=== PATIENT | female | born 1960 | race Caucasian/White ===

== ENCOUNTER 2016-06-18 12:50 | Day surgery (SDC) | payer MEDICARE, BC ==
[~2016-06-18 12:50] MED LIST: Lactated Ringers 1,000 ML IV SCH; Lidocaine 1% 4 ML ONE; Lidocaine 1%/Sod Bicarbonate in NS 8.4% 1 ML Syringe IV PRN; Propofol 200 MG/20 ML SDV ONE; Sodium Chloride 0.9% 10 ML Syringe FLUSH PRN
--- NOTE | 2016-06-18 13:27 | PCM.PREANE ---
Preanesthetic Assessment - Anesthesia/Transfusion/Family Hx Anesthesia History: Prior Anesthesia Reaction Type of Anesthesia Reaction: Excessive Somnolence, Excessive Nausea/Vomiting, Other (see below) (hallucinations from narcotics ) Family History of Anesthesia Reaction: No Transfusion History: No Prior Transfusion(s) Intubation History: History of Difficulty Intubation (neck fusion, was told she has a difficult airway due to this ) - Review of Systems General: No Symptoms Pulmonary: Shortness of Breath (r/t dystolic dysfunction ) Cardiovascular: Dyspnea on Exertion Gastrointestinal: Nausea (since november, occasional 4 days a week ) Neurological: No Symptoms Other: Reports: Liver Problems (diagnosised with a fatty liver ) - Physical Assessment NPO Status Date: 06/17/16 NPO Status Time: 05:15 Pulse: 79 O2 Sat by Pulse Oximetry: 79 Respiratory Rate: 16 Blood Pressure: 118/89 Temperature: 36.4 C Height: 0 cm Weight: 0 g ASA Class: 3 Mental Status: Alert & Oriented x3 Airway Class: Mallampati = 1 Dentition: Reports: Normal Dentition Thyro-Mental Finger Breadths: 2 Mouth Opening Finger Breadths: 5 ROM/Head Extension: Full Lungs: Clear to auscultation, Normal respiratory effort Cardiovascular: Regular Rate, Regular Rhythm - Allergies Allergies/Adverse Reactions: Allergies Allergy/AdvReac Type Severity Reaction Status Date / Time adhesive Allergy Rash Verified 06/17/16 15:31 Sulfa (Sulfonamide Allergy Other Verified 06/17/16 15:31 Antibiotics) vortioxetine Allergy Nausea and Verified 06/17/16 15:31 [From Trintellix] Vomiting doxycycline AdvReac Vomiting Verified 06/17/16 15:31 fentanyl AdvReac Confusion Verified 06/17/16 15:31 methadone AdvReac Blurred Verified 06/17/16 15:31 Vision sertraline AdvReac Vomiting Verified 06/17/16 15:31 Dust and mold Allergy Coughing, Uncoded 06/17/16 15:31 sneezing - Blood Blood Available: No - Anesthesia Plan Pre-Op Medication Ordered: None - Acknowledgements Anesthesia Type Planned: MAC Pt an Appropriate Candidate for the Planned Anesthesia: Yes Alternatives and Risks of Anesthesia Discussed w Pt/Guardian: Yes Pt/Guardian Understands and Agrees with Anesthesia Plan: Yes PreAnesthesia Questionnaire HEENT History: Reports: Impaired vision, Other (see below) Other HEENT History: septoplasty, glasses Cardiovascular History: Reports: Other (see below) Other Cardiovascular History: distolic dysfunction Respiratory History: Reports: Sleep apnea, SOB Gastrointestinal History: Reports: Chronic diarrhea, Diverticulosis, Gastritis, GERD Other Gastrointestinal History: post op nausea and vomiting, diarrhea, globus sensation, hiatal hernia 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 Other Musculoskeletal History: adhesive capsulitis of L shoulder, sympathetic reflex dystropy, chronic pain Neurological History: Reports: None Psychiatric History: Reports: Depression, Other (see below) Other Psychiatric History: insomnia Endocrine/Metabolic History: Reports: Other (see below) Other Endocrine/Metabolic History: thyroid nodule, adrenal insufficiency Hematologic History: Reports: None Immunologic History: Reports: None Oncologic (Cancer) History: Reports: None Other Dermatologic History: hyperhidrosis - Past Surgical History GI Surgical History: Reports: Cholecystectomy, Colonoscopy, EGD Female Surgical History: Reports: Hysterectomy Other Musculoskeletal Surgeries/Procedures:: ulnar nerve traspositon, carpal tunnel release, r ankle surgery in 1985, Cspine fusion - SUBSTANCE USE Smoking Status *Q: Never Smoker Recreational Drug Use History: No - HOME MEDS Home Medications: Home Meds Azelastine HCl [Astepro] 1 dose MALCOLM ASDIRECTED 06/17/16 [History] Cetirizine [ZyrTEC] 10 mg PO DAILY 06/17/16 [History] Cholecalciferol (Vitamin D3) [Vitamin D3] 5,000 unit PO DAILY 06/17/16 [History] Citalopram [Celexa] 20 mg PO DAILY 06/17/16 [History] Cyclobenzaprine [Flexeril] 10 mg PO TID PRN 06/17/16 [History] Dextroamphetamine/Amphetamine [Adderall Xr 30 mg Capsule] 30 mg PO ASDIRECTED [History] Diazepam [Valium] 10 mg PO ASDIRECTED 06/17/16 [History] Dicyclomine HCl [Dicyclomine HCl] 20 mg PO ASDIRECTED 06/17/16 [History] Fluticasone Propionate [Flonase] 1 spray NASBOTH DAILY 06/17/16 [History] Hydrocortisone [Cortef] 5 mg PO BID 06/17/16 [History] Hydrocortisone [Cortef] 10 mg PO QAM 06/17/16 [History] Ibuprofen 1 - 3 tab PO Q6H PRN 06/17/16 [History] Ipratropium [Atrovent HFA] 1 dose INH ASDIRECTED 06/17/16 [History] Magnesium Citrate 100 mg PO DAILY 06/17/16 [History] Multivitamin [Multivitamins] 1 tab PO DAILY 06/17/16 [History] Omeprazole Magnesium [Prilosec Otc] 20 mg PO DAILY 06/17/16 [History] Ranitidine HCl [Zantac] 150 mg PO ASDIRECTED 06/17/16 [History] Salicylic Acid/Ceramide Cmb #1 [Salicylic Acid 6% Lotion] 1 applic TOP ASDIRECTED 06/17/16 [History] Simethicone [Gas Relief] 125 mg PO ASDIRECTED PRN 06/17/16 [History] Sucralfate [Carafate] 1 gm PO QID 06/17/16 [History] lamoTRIgine [Lamictal] 25 mg PO ASDIRECTED 06/17/16 [History] - CURRENT (IN HOUSE) MEDS Current Meds: Current Medications Lactated Ringer's (Ringers, Lactated) 1,000 mls @ 125 mls/hr IV ASDIRECTED KENTRELL Lidocaine/Sodium Bicarbonate (Buffered Lidocaine 1% In Ns 8.4%) 0.25 ml IV ONETIME PRN PRN Reason: Prior to IV Start Sodium Chloride (Saline Flush) 10 ml FLUSH ASDIRECTED PRN PRN Reason: Keep Vein Open Discontinued Medications Lidocaine HCl (Xylocaine-Mpf 1%) Confirm Administered Dose 4 mls @ as directed .ROUTE .STK-MED ONE Stop: 06/18/16 12:05 Propofol (Diprivan 20 Ml) Confirm Administered Dose 200 mg .ROUTE .STK-MED ONE Stop: 06/18/16 12:05
[2016-06-18] MEDS ORDERED: Propofol 200 MG/20 ML SDV ONE (14:53)
--- NOTE | 2016-06-18 15:15 | PCM.OPNOTE ---
- General Post-Op/Procedure Note Date of Surgery/Procedure: 06/18/16 Operative Procedure(s): 1. Diagnostic EGD with cold forceps polypectomy. 2. Diagnostic colonoscopy with cold forceps biopsy Pre Op Diagnosis: Dysphagia, abdominal pain Post-Op Diagnosis: Gastritis, a few diminutive gastric polyps, hiatal hernia, diverticulosis, proctitis Anesthesia Technique: MAC Primary Surgeon: Lucero Sierra Anesthesia Provider: Patricia Yadav Pathology: 1. Small bowel biopsy 2. Antral biopsy 3. Distal esophageal biopsy 4. Rectal biopsies Fluid Replacement, Intraop: 500 (mL crystalloid ) EBL in mLs: 1 Complications: None Condition: Good Free Text/Narrative:: INDICATION FOR PROCEDURE: The patient is a 55-year-old woman who was referred to me by RON Pond for evaluation for chronic abdominal pain, nausea , vomiting, dysphagia. Performing a colonoscopy and EGD an the associated risks of the procedures had been discussed with the patient. The patient found these risks acceptable and agreed to proceed. DESCRIPTION OF PROCEDURE: The patient was taken to the operating room and placed in the left lateral decubitus position. After induction of adequate sedation, a bite block was placed. A standard Olympus gastroscope was inserted into the oropharynx and guided down the esophagus without difficulty. The gastroesophageal junction was appreciated at 39 cm from the teeth. There was no evidence of stricture or esophageal ulcerations. The scope was advanced into the stomach, and there was diffuse moderate gastritis with areas of punctate hemorrhage. The scope was passed into the proximal jejunum and the duodenum which was unremarkable. There were no petechiae or ulcerations. The proximal jejunum was grossly normal in appearance. Multiple cold forceps biopsies were obtained of the proximal jejunum and duodenum. The scope was withdrawn into the antrum, and additional cold forceps biopsies were obtained. The remainder of the gastric body was examined, and there were a few diminutive gastric polyps in the cardia. The scope was retroflexed, and there was a small hiatal hernia. The scope was straightened and withdrawn to the GE junction. Additional cold forceps biopsies were obtained of the distal esophagus. The scope was withdrawn through the remainder of the esophagus and no further abnormalities were noted. The posterior oropharynx was grossly normal in appearance. The scope was fully withdrawn and attention was then turned to the colonoscopy. A digital rectal exam was performed which was unremarkable. A standard adult Olympus colonoscope was inserted into the rectum and guided under direct visualization to the appendiceal orifice and ileocecal valve. The scope was then slowly withdrawn through the colon. The quality of the prep was good. There was no evidence of angiodysplasias. There were a few scattered diverticulum throughout the colon. The scope was withdrawn into the rectum and retroflexed. There was proctitis, cold forceps biopsies were obtained. There was no significant prominence of the patient's internal hemorrhoids. The scope was straightened, the colon was desufflated, and the scope was withdrawn. The patient was awakened from sedation and transferred to the recovery room in stable condition having tolerated the procedure well. POSTOPERATIVE PLAN: I discussed with the patient my intraoperative findings and recommendations. The patient will follow up in approximately 7-10 days to discuss pathology and how their symptoms are progressing. The patient is to continue Prilosec and Zantac. She cannot tolerate Carafate. I have asked the patient to follow a GERD\gastritis diet. The patient is to call with any worsening of symptoms or questions prior to the appointment.
--- NOTE | 2016-06-18 15:15 | PCM48HPAN ---
Post Anesthesia Note - EVALUATION WITHIN 48HRS OF ANESTHETIC Vital Signs in Normal Range: Yes Patient Participated in Evaluation: Yes Respiratory Function Stable: Yes Airway Patent: Yes Cardiovascular Function Stable: Yes Hydration Status Stable: Yes Pain Control Satisfactory: Yes Nausea and Vomiting Control Satisfactory: Yes Mental Status Recovered: Yes
[2016-06-18 15:19] VITALS: BP 125/77
== END 2016-06-18 15:50 | disposition home or self-care (01) ==
LOC: JD.SDS 12:50
PROVIDERS: ATTEND Surgery
PROC: 0DB98ZX Excision of Duodenum, Via Natural or Artificial Opening Endoscopic, Diagnostic (ICD-10-PCS; principal; 2016-06-18)
PROC: 0DB48ZX Excision of Esophagogastric Junction, Via Natural or Artificial Opening Endoscopic, Diagnostic (ICD-10-PCS; 2016-06-18)
PROC: 0DB68ZX Excision of Stomach, Via Natural or Artificial Opening Endoscopic, Diagnostic (ICD-10-PCS; 2016-06-18)
PROC: 0DBA8ZX Excision of Jejunum, Via Natural or Artificial Opening Endoscopic, Diagnostic (ICD-10-PCS; 2016-06-18)
PROC: 0DBE8ZX Excision of Large Intestine, Via Natural or Artificial Opening Endoscopic, Diagnostic (ICD-10-PCS; 2016-06-18)
DX: K29.50 Unspecified chronic gastritis without bleeding (principal); K31.7 Polyp of stomach and duodenum; K44.9 Diaphragmatic hernia without obstruction or gangrene; K57.30 Diverticulosis of large intestine without perforation or abscess without bleeding; K62.89 Other specified diseases of anus and rectum; K64.8 Other hemorrhoids; F32.9 Major depressive disorder, single episode, unspecified; G47.30 Sleep apnea, unspecified; E04.2 Nontoxic multinodular goiter; Z90.49 Acquired absence of other specified parts of digestive tract; Z90.710 Acquired absence of both cervix and uterus; Z98.890 Other specified postprocedural states; Z79.899 Other long term (current) drug therapy; Z88.1 Allergy status to other antibiotic agents; Z88.2 Allergy status to sulfonamides; Z88.5 Allergy status to narcotic agent; Z88.8 Allergy status to other drugs, medicaments and biological substances; Z91.048 Other nonmedicinal substance allergy status
CPT/HCPCS: 43239; 45380; 88305; J7120; 00740; J2704

== ENCOUNTER 2016-11-17 07:46 | Observation (INO) | payer MEDICARE, BC ==
[~2016-11-17 07:46] MED LIST changes: +Dexamethasone 4 MG/ML 5 ML MDV ONE; -Lactated Ringers 1,000 ML IV SCH; +Lactated Ringers 1,000 ML ONE; +Midazolam 1 MG/ML 2 ML SDV ONE; +Ondansetron 4 MG/2 ML SDV ONE; +Rocuronium 50 MG/5 ML Vial ONE; +ceFAZolin 1 GM Vial ONE; +fentaNYL 250 MCG/5 ML SDV ONE
[2016-11-17] MEDS ORDERED: Hydrocortisone Sodium Succinate 100 MG/2 ML SDV ONE (07:49)
--- NOTE | 2016-11-17 07:58 | PCM.PREANE ---
Preanesthetic Assessment - Procedure Proposed Procedure: Left thyroid lobectomy. - Anesthesia/Transfusion/Family Hx Anesthesia History: Prior Anesthesia Reaction Type of Anesthesia Reaction: Excessive Nausea/Vomiting Family History of Anesthesia Reaction: No Transfusion History: No Prior Transfusion(s) Intubation History: History of Difficulty Intubation (neck fusion, was told she has a difficult airway due to this ) - Review of Systems General: No Symptoms Pulmonary: No Symptoms (sleep apnea (pt uses CPAP)), Shortness of Breath, Cough Cardiovascular: No Symptoms (Diastolic heart failure), Lightheadedness Gastrointestinal: No Symptoms (GERD) Neurological: No Symptoms (Numbness/tingling in hands/fingers), Headache, Numbness, Tingling Other: Reports: None (Adrenal insufficiency; chronic pain), Easy Bruising, Liver Problems (Nonalcoholic fatty liver disease), Throat Pain, Neck Pain, Depression - Physical Assessment NPO Status Date: 11/17/16 NPO Status Time: 23:15 Pulse: 74 O2 Sat by Pulse Oximetry: 97 Blood Pressure: 133/56 Height: 0 cm Weight: 0 g ASA Class: 3 Mental Status: Alert & Oriented x3 Airway Class: Mallampati = 1 Dentition: Reports: Normal Dentition, [place](s) Thyro-Mental Finger Breadths: 3 Mouth Opening Finger Breadths: 3 ROM/Head Extension: Full (Patient states that it is painful to extend neck.) Lungs: Clear to Auscultation, Normal Respiratory Effort Cardiovascular: Regular Rate, Regular Rhythm - Allergies Allergies/Adverse Reactions: Allergies Allergy/AdvReac Type Severity Reaction Status Date / Time adhesive Allergy Rash Verified 11/14/16 12:21 Sulfa (Sulfonamide Allergy Other Verified 11/14/16 12:21 Antibiotics) vortioxetine Allergy Nausea and Verified 11/14/16 12:21 [From Trintellix] Vomiting doxycycline AdvReac Vomiting Verified 11/14/16 12:21 fentanyl AdvReac Confusion Verified 11/14/16 12:21 methadone AdvReac Blurred Verified 11/14/16 12:21 Vision sertraline AdvReac Vomiting Verified 11/14/16 12:21 Dust and mold Allergy Coughing, Uncoded 11/14/16 12:21 sneezing - Anesthesia Plan Pre-Op Medication Ordered: None - Acknowledgements Anesthesia Type Planned: General Anesthesia Pt an Appropriate Candidate for the Planned Anesthesia: Yes Alternatives and Risks of Anesthesia Discussed w Pt/Guardian: Yes Pt/Guardian Understands and Agrees with Anesthesia Plan: Yes PreAnesthesia Questionnaire HEENT History: Reports: Impaired Vision, Other (See Below) Other HEENT History: septoplasty, glasses Cardiovascular History: Reports: Other (See Below) Other Cardiovascular History: distolic dysfunction Respiratory History: Reports: Sleep Apnea, SOB Gastrointestinal History: Reports: Chronic Diarrhea, Colon Polyp, Diverticulosis , Gastritis, GERD, Hiatal Hernia Other Gastrointestinal History: post op nausea and vomiting, diarrhea, globus sensation, hiatal hernia Genitourinary History: Reports: None 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, 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, Other (See Below) Other OB/BYN History: left adnexal mass Other Musculoskeletal History: adhesive capsulitis of L shoulder, sympathetic reflex dystropy, chronic pain, bilateral achilles tendonitis Neurological History: Reports: None Psychiatric History: Reports: Depression, Other (See Below) Other Psychiatric History: insomnia Endocrine/Metabolic History: Reports: Other (See Below) Other Endocrine/Metabolic History: thyroid nodule, adrenal insufficiency Hematologic History: Reports: None Immunologic History: Reports: None Oncologic (Cancer) History: Reports: None, Basal Cell Carcinoma Other Dermatologic History: hyperhidrosis - Past Surgical History GI Surgical History: Reports: Cholecystectomy, Colonoscopy, EGD Female Surgical History: Reports: Hysterectomy Neurological Surgical History: Reports: None Other Musculoskeletal Surgeries/Procedures:: ulnar nerve traspositon, carpal tunnel release, r ankle surgery in 1985, Cspine fusion Oncologic Surgical History: Reports: None - SUBSTANCE USE Smoking Status *Q: Never Smoker Recreational Drug Use History: No - HOME MEDS Home Medications: Home Meds Citalopram [Celexa] 20 mg PO DAILY 06/17/16 [History] Cyclobenzaprine [Flexeril] 10 mg PO TID PRN 06/17/16 [History] Dextroamphetamine/Amphetamine [Adderall Xr 30 mg Capsule] 30 mg PO DAILY [History] Diazepam [Valium] 10 mg PO DAILY PRN 06/17/16 [History] Fluticasone Propionate [Flonase] 1 spray NASBOTH DAILY 06/17/16 [History] Hydrocortisone [Cortef] 5 mg PO BID 06/17/16 [History] Hydrocortisone [Cortef] 10 mg PO QAM 06/17/16 [History] Ranitidine HCl [Zantac] 150 mg PO DAILY PRN 06/17/16 [History] Salicylic Acid/Ceramide Cmb #1 [Salicylic Acid 6% Lotion] 1 applic TOP ASDIRECTED 06/17/16 [History] Simethicone [Gas Relief] 125 mg PO DAILY PRN 06/17/16 [History] lamoTRIgine [Lamictal] 100 mg PO DAILY 06/17/16 [History] buPROPion [Wellbutrin XL] 300 mg PO DAILY 06/18/16 [History] - CURRENT (IN HOUSE) MEDS Current Meds: Current Medications Lactated Ringer's (Ringers, Lactated) 1,000 mls @ 125 mls/hr IV ASDIRECTED KENTRELL Stop: 11/17/16 23:00 Lidocaine/Sodium Bicarbonate (Buffered Lidocaine 1% In Ns 8.4%) 0.25 ml IV ONETIME PRN PRN Reason: Prior to IV Start Stop: 11/17/16 18:00 Sodium Chloride (Saline Flush) 10 ml FLUSH ASDIRECTED PRN PRN Reason: Keep Vein Open Stop: 11/17/16 18:00 Discontinued Medications Cefazolin Sodium (Ancef) Confirm Administered Dose 2 gm .ROUTE .STK-MED ONE Stop: 11/17/16 07:11 Dexamethasone (Dexamethasone) Confirm Administered Dose 20 mg .ROUTE .STK-MED ONE Stop: 11/17/16 07:11 Fentanyl (Sublimaze) Confirm Administered Dose 250 mcg .ROUTE .STK-MED ONE Stop: 11/17/16 07:11 Hydrocortisone Sodium Succinate (Solu-Cortef) Confirm Administered Dose 100 mg .ROUTE .STK-MED ONE Stop: 11/17/16 07:50 Lidocaine HCl (Xylocaine-Mpf 1%) Confirm Administered Dose 4 mls @ as directed .ROUTE .STK-MED ONE Stop: 11/17/16 07:11 Lactated Ringer's (Ringers, Lactated) Confirm Administered Dose 1,000 mls @ as directed .ROUTE .STK-MED ONE Stop: 11/17/16 07:29 Midazolam HCl (Versed 1 Mg/Ml) Confirm Administered Dose 2 mg .ROUTE .STK-MED ONE Stop: 11/17/16 07:11 Ondansetron HCl (Zofran) Confirm Administered Dose 4 mg .ROUTE .STK-MED ONE Stop: 11/17/16 07:11 Propofol (Diprivan 20 Ml) Confirm Administered Dose 200 mg .ROUTE .STK-MED ONE Stop: 11/17/16 07:11 Rocuronium [place] (Zemuron) Confirm Administered Dose 50 mg .ROUTE .STK-MED ONE Stop: 11/17/16 07:11
[2016-11-17] MEDS: Lactated Ringers 1,000 ML IV SCH ×3 (08:05→16:49)
[2016-11-17] MEDS ORDERED: Scopolamine 1.5 MG Transdermal Patch TRDERM ONE (08:24)
[2016-11-17] MEDS ORDERED: Succinylcholine 200 MG/10 ML MDV ONE (08:52)
[2016-11-17] MEDS ORDERED: Phenylephrine 1% 10 MG/ML SDV ONE (09:38)
--- NOTE | 2016-11-17 10:44 | PCM.OPNOTE ---
- General Post-Op/Procedure Note Date of Surgery/Procedure: 11/17/16 Operative Procedure(s): left thyroid left lobectomy Pre Op Diagnosis: symptomatic substernal thyroid left Post-Op Diagnosis: Same Anesthesia Technique: General ET Tube Primary Surgeon: Conrad Billingsley EBL in mLs: 30 Complications: None Condition: Good
[2016-11-17] MEDS ORDERED: Cyclobenzaprine 10 MG Tab PO PRN (10:46)
[2016-11-17] MEDS ORDERED: Simethicone 80 MG Tab.Chew PO PRN (10:46)
[2016-11-17] MEDS ORDERED: Famotidine 20 MG Tab PO PRN (10:46)
[2016-11-17] MEDS ORDERED: Diazepam 5 MG Tab PO PRN (10:46)
--- NOTE | 2016-11-17 10:56 | PCM.POSTAN ---
POST ANESTHESIA ASSESSMENT - MENTAL STATUS Mental Status: Alert, Oriented - VITAL SIGNS Pulse Rate: 73 SaO2: 100 Resp Rate: 15 Blood Pressure: 122/59 Temperature: 36.8 C - RESPIRATORY Respiratory Status: Respiratory Rate WNL, Airway Patent, O2 Saturation Stable - CARDIOVASCULAR CV Status: Pulse Rate WNL, Blood Pressure Stable - GASTROINTESTINAL GI Status: No Symptoms - PAIN Pain Score: 0 - POST OP HYDRATION Hydration Status: Adequate & Stable
[2016-11-17] MEDS ORDERED: Ondansetron 4 MG/2 ML SDV IVPUSH PRN (10:57)
[2016-11-17] MEDS ORDERED: SALICYLIC ACID TOP SCH (11:00)
[2016-11-17] MEDS ORDERED: [UNRECOGNIZED DRUG - OTHER] TOP SCH (11:00)
[2016-11-17] MEDS: fentaNYL 100 MCG/2 ML SDV IVPUSH PRN ×3 (11:13→11:44)
[2016-11-17] MEDS ORDERED: HYDROmorphone 0.5 MG/0.5 ML Syringe IVPUSH PRN ×2 (11:14→15:24)
[2016-11-17] MEDS: HYDROmorphone 0.5 MG/0.5 ML Syringe IVPUSH PRN ×2 (11:30→11:49)
[2016-11-17] MEDS ORDERED: Ondansetron 4 MG Tab.DIS PO PRN ×2 (13:28→15:24)
[2016-11-17] MEDS ORDERED: Acetaminophen/HYDROcodone 325-5 MG Tab PO PRN ×2 (14:35→15:24)
[2016-11-17] MEDS ORDERED: Hydrocortisone Sodium Succinate 100 MG/2 ML SDV IVPUSH SCH (15:24)
[2016-11-17] MEDS: Hydrocortisone Sodium Succinate 100 MG/2 ML SDV IVPUSH SCH ×2 (16:48→21:37)
[2016-11-17] MEDS: Benzocaine/Cetylpyridinium/Menthol Lozenge MUCMEM PRN (21:38)
[2016-11-18] MEDS: Hydrocortisone Sodium Succinate 100 MG/2 ML SDV IVPUSH SCH ×3 (03:59→16:05)
[2016-11-18] MEDS: Benzocaine/Cetylpyridinium/Menthol Lozenge MUCMEM PRN (04:06)
--- NOTE | 2016-11-18 07:38 | OR ---
DATE OF OPERATION: 11/17/2016 SURGEON: Conrad Billingsley MD PREOPERATIVE DIAGNOSIS: Symptomatic left thyroid goiter. POSTOPERATIVE DIAGNOSIS: Symptomatic left thyroid goiter. OPERATION PERFORMED: Left thyroid lobectomy done under general anesthetic. ESTIMATED BLOOD LOSS: About 30 mL. FINDINGS: Large goiter that was extending into the chest. DESCRIPTION OF PROCEDURE: The patient was taken to the operating room, placed in a supine position, given a general anesthetic and intubated. A steroid boost was given because of adrenal insufficiency. She is positioned on the table with the arms tucked and a roll under her shoulder and the neck extended. The anterior chest, neck, and chin was then prepped with Betadine scrubbing solution, draped off in a sterile fashion. A collar incision was made and carried down by sharp dissection through the platysmas, and superior and inferior flaps were developed. Efren Adson self-retaining retractor was placed. The strap muscles were incised in the midline and dissected off the thyroid and the thyroid was then on the left side, and the thyroid lobe was then delivered into the wound by blunt dissection. The inferior thyroid vein was taken down between curved hemostats and the thyroid lobe was then tipped up and the superior thyroid artery were taken down and clamping its branches as ramified onto the thyroid. Gland, these were cut and tied with 3-0 Vicryl suture. The branches of the inferior thyroid artery were taken down, clamped and tied with 3-0 Vicryl suture and the recurrent nerve was kept from harm's way. Bleeding thyroid was then delivered for analysis. Inspection of the wound showed bleeders and these were taken care with small clips. Excellent hemostasis sustained. The thyroid midline, strap muscle was then closed with interrupted 3-0 Vicryl suture. Platysmas were then approximated with interrupted 3-0 Vicryl suture and the skin closed with a running subdermal 4 Dexon suture. Steri-Strips, sterile dressing placed. The patient tolerated the procedure and sent to recovery room in a stable condition. ANESTHESIA: General. MMODAL /[id number]
[2016-11-18] MEDS ORDERED: HYDROCORTISONE 10 MG PO SCH (08:00)
[2016-11-18] MEDS ORDERED: Dextroamphetamine/Amphetamine [Adderall Xr 30 Mg Capsule] PO SCH (09:00)
[2016-11-18] MEDS ORDERED: HYDROCORTISONE 5 MG PO SCH (09:00)
[2016-11-18] MEDS ORDERED: Citalopram 20 MG Tab PO SCH (09:00)
[2016-11-18] MEDS ORDERED: lamoTRIgine 100 MG Tab PO SCH (09:00)
[2016-11-18] MEDS ORDERED: buPROPion 150 MG Tab.ER PO SCH (09:00)
--- NOTE | 2016-11-18 09:13 | PCM48HPAN ---
Post Anesthesia Note - EVALUATION WITHIN 48HRS OF ANESTHETIC Vital Signs in Normal Range: Yes Patient Participated in Evaluation: Yes Respiratory Function Stable: Yes Airway Patent: Yes Cardiovascular Function Stable: Yes Hydration Status Stable: Yes Pain Control Satisfactory: Yes Nausea and Vomiting Control Satisfactory: Yes Mental Status Recovered: Yes - COMMENTS/OBSERVATIONS Free Text/Narrative:: Patient reports pain at incision site. Pain medications prescribed do help with management. States "it is easier to swallow and no longer feels like she has something stuck in her throat." On humidified O2 at 6L. SpO2 is 97%. Encouraged to use IS frequently. No further questions at this time.
[2016-11-18] MEDS: Lactated Ringers 1,000 ML IV SCH (13:02)
[2016-11-18 13:22] VITALS: BP 108/75
--- NOTE | 2016-11-18 16:16 | PCM.SURGPN ---
- General Info Date of Service: 11/18/16 - Patient Data Vitals - Most Recent: Last Vital Signs Temp 98.6 F 11/18/16 12:00 Pulse 70 11/18/16 12:00 Resp 18 11/18/16 12:00 BP 108/75 11/18/16 12:00 Pulse Ox 94 L 11/18/16 12:00 Weight - Most Recent: 87.317 kg I&O - Last 24 Hours: Intake & Output 11/18/16 11/18/16 11/18/16 07:59 15:59 23:59 Intake Total 808 480 600 Output Total 1100 Balance -292 480 600 Lab Results Last 24 Hrs: Laboratory Results - last 24 hr 11/17/16 11/18/16 Range/Units 16:00 06:30 Calcium 8.2 L 8.2 L (8.5-10.1) mg/dL Med Orders - Current: Current Medications Hydrocodone Bitart/Acetaminophen ([place] 325-5 Mg) 1 tab PO Q4H PRN PRN Reason: Pain Last Admin: 11/18/16 13:03 Dose: 1 tab Benzocaine/Menthol (Cepacol Sore Throat) 1 lozenge MUCMEM Q4HR PRN PRN Reason: Sore Throat Last Admin: 11/18/16 04:06 Dose: 1 lozenge Bupropion HCl (Wellbutrin Xl) 300 mg PO DAILY [facility] Last Admin: 11/18/16 09:03 Dose: 300 mg Citalopram Hydrobromide (Celexa) 20 mg PO DAILY [facility] Last Admin: 11/18/16 09:03 Dose: 20 mg Cyclobenzaprine HCl (Flexeril) 10 mg PO TID PRN PRN Reason: muscle spasms Diazepam (Valium.) 10 mg PO DAILY PRN PRN Reason: Anxiety Famotidine (Pepcid) 20 mg PO DAILY PRN PRN Reason: acid reflux Flunisolide (Nasalide Nasal [place]) 0 ml NASBOTH BID [facility] Last Admin: 11/18/16 10:07 Dose: Not Given Hydrocortisone Sodium Succinate (Solu-Cortef) 50 mg IVPUSH Q6H [facility] Last Admin: 11/18/16 16:05 Dose: 50 mg Hydromorphone HCl (Dilaudid) 0.5 mg IVPUSH Q2H PRN PRN Reason: Pain Last Admin: 11/17/16 20:06 Dose: 0.5 mg Lactated Ringer's (Ringers, Lactated) 1,000 mls @ 50 mls/hr IV ASDIRECTED [facility] Last Admin: 11/18/16 13:02 Dose: 50 mls/hr Lamotrigine (Lamotrigine) 100 mg PO DAILY [facility] Last Admin: 11/18/16 10:07 Dose: 100 mg Non-Formulary Medication (Hydrocortisone) 5 mg PO BID [facility] Non-Formulary Medication (Hydrocortisone) 10 mg PO QAM [facility] Ondansetron HCl (Zofran Odt) 4 mg PO Q8H PRN PRN Reason: Nausea/Vomiting Dextroamphetamine/Amphetamine [ Adderall Xr 30 Mg Capsule] 0 each PO DAILY [facility] Last Admin: 11/18/16 09:44 Dose: Not Given Salicylic Acid/Ceramide Cmb #1 [ Salicylic Acid 6% Lotion] 0 each TOP ASDIRECTED [facility] Simethicone (Simethicone) 80 mg PO DAILY PRN PRN Reason: Gas Discontinued Medications Hydrocodone Bitart/Acetaminophen ([place] 325-5 Mg) 1 tab PO Q4H PRN PRN Reason: Pain Cefazolin Sodium (Ancef) Confirm Administered Dose 2 gm .ROUTE .STK-MED ONE Stop: 11/17/16 07:11 Dexamethasone (Dexamethasone) Confirm Administered Dose 20 mg .ROUTE .STK-MED ONE Stop: 11/17/16 07:11 Fentanyl (Sublimaze) Confirm Administered Dose 250 mcg .ROUTE .STK-MED ONE Stop: 11/17/16 07:11 Fentanyl (Sublimaze) 50 mcg IVPUSH Q5M PRN PRN Reason: Pain Stop: 11/17/16 14:00 Last Admin: 11/17/16 11:44 Dose: 50 mcg Hydrocortisone Sodium Succinate (Solu-Cortef) Confirm Administered Dose 100 mg .ROUTE .STK-MED ONE Stop: 11/17/16 07:50 Hydrocortisone Sodium Succinate (Solu-Cortef) 50 mg IVPUSH Q6H [facility] Last Admin: 11/17/16 17:51 Dose: Not Given Hydromorphone HCl (Dilaudid) 0.5 mg IVPUSH Q15M PRN PRN Reason: severe pain Stop: 11/17/16 14:00 Last Admin: 11/17/16 11:49 Dose: 0.5 mg Hydromorphone HCl (Dilaudid) 0.5 mg IVPUSH Q2H PRN PRN Reason: Pain Lactated Ringer's (Ringers, Lactated) 1,000 mls @ 50 mls/hr IV ASDIRECTED [facility] Stop: 11/17/16 23:00 Last Admin: 11/17/16 12:35 Dose: 125 mls/hr Lidocaine HCl (Xylocaine-Mpf 1%) Confirm Administered Dose 4 mls @ as directed .ROUTE .STK-MED ONE Stop: 11/17/16 07:11 Lactated Ringer's (Ringers, Lactated) Confirm Administered Dose 1,000 mls @ as directed .ROUTE .STK-MED ONE Stop: 11/17/16 07:29 Lidocaine/Sodium Bicarbonate (Buffered Lidocaine 1% In Ns 8.4%) 0.25 ml IV ONETIME PRN PRN Reason: Prior to IV Start Stop: 11/17/16 18:00 Midazolam HCl (Versed 1 Mg/Ml) Confirm Administered Dose 2 mg .ROUTE .STK-MED ONE Stop: 11/17/16 07:11 Ondansetron HCl (Zofran) Confirm Administered Dose 4 mg .ROUTE .STK-MED ONE Stop: 11/17/16 07:11 Ondansetron HCl (Zofran) 4 mg IVPUSH ONETIME PRN PRN Reason: Nausea/Vomiting Stop: 11/17/16 14:00 Ondansetron HCl (Zofran Odt) 4 mg PO Q8H PRN PRN Reason: Nausea/Vomiting Phenylephrine HCl (Ari-Synephrine) Confirm Administered Dose 10 mg .ROUTE .STK- MED ONE Stop: 11/17/16 09:39 Propofol (Diprivan 20 Ml) Confirm Administered Dose 200 mg .ROUTE .STK-MED ONE Stop: 11/17/16 07:11 Rocuronium Index (Zemuron) Confirm Administered Dose 50 mg .ROUTE .STK-MED ONE Stop: 11/17/16 07:11 Scopolamine (Transderm-Scop) 1.5 mg TRDERM ONETIME ONE Stop: 11/17/16 08:25 Last Admin: 11/17/16 08:33 Dose: 1.5 mg Sodium Chloride (Saline Flush) 10 ml FLUSH ASDIRECTED PRN PRN Reason: Keep Vein Open Stop: 11/17/16 18:00 Succinylcholine Chloride (Quelicin) Confirm Administered Dose 200 mg .ROUTE .STK -MED ONE Stop: 11/17/16 08:53 - Problem List Review Problem List Initiated/Reviewed/Updated: Yes - My Orders Last 24 Hours: Active Orders 24 hr Category Date Time Status Ambulate [] QID Care 11/17/16 19:21 Active Communication Order [] ASDIRECTED Care 11/17/16 19:32 Active Ready for Discharge [] PER UNIT ROUTINE Care 11/18/16 16:15 Ordered Up to Chair [] TIDAC Care 11/17/16 19:22 Active Benzocaine/Cetylpyrd/Menthol [Cepacol Sore Throat] Med 11/17/16 19:20 Active 1 lozenge MUCMEM Q4HR PRN Citalopram [Celexa] Med 11/18/16 09:00 Active 20 mg PO DAILY Flunisolide [Nasalide Nasal [place]] Med 11/18/16 09:00 Active 0 ml NASBOTH BID Hydrocortisone Med 11/18/16 08:00 Pending 10 mg PO QAM Hydrocortisone Med 11/18/16 09:00 Pending 5 mg PO BID Patient's Own Medication [Ptom] Med 11/18/16 09:00 Active 0 each PO DAILY buPROPion [Wellbutrin XL] Med 11/18/16 09:00 Active 300 mg PO DAILY lamoTRIgine Med 11/18/16 09:00 Active 100 mg PO DAILY Medication Orders Hydrocodone Bitart/Acetaminophen ([place] 325-5 Mg) 1 tab PO Q4H PRN PRN Reason: Pain Last Admin: 11/18/16 13:03 Dose: 1 tab Benzocaine/Menthol (Cepacol Sore Throat) 1 lozenge MUCMEM Q4HR PRN PRN Reason: Sore Throat Last Admin: 11/18/16 04:06 Dose: 1 lozenge Admin: 11/17/16 21:38 Dose: 1 lozenge Bupropion HCl (Wellbutrin Xl) 300 mg PO DAILY [facility] Last Admin: 11/18/16 09:03 Dose: 300 mg Citalopram Hydrobromide (Celexa) 20 mg PO DAILY [facility] Last Admin: 11/18/16 09:03 Dose: 20 mg Cyclobenzaprine HCl (Flexeril) 10 mg PO TID PRN PRN Reason: muscle spasms Diazepam (Valium.) 10 mg PO DAILY PRN PRN Reason: Anxiety Famotidine (Pepcid) 20 mg PO DAILY PRN PRN Reason: acid reflux Flunisolide (Nasalide Nasal [place]) 0 ml NASBOTH BID [facility] Last Admin: 11/18/16 10:07 Dose: Not Given Hydrocortisone Sodium Succinate (Solu-Cortef) 50 mg IVPUSH Q6H [facility] Last Admin: 11/18/16 16:05 Dose: 50 mg Admin: 11/18/16 09:03 Dose: 50 mg Admin: 11/18/16 03:59 Dose: 50 mg Admin: 11/17/16 21:37 Dose: 50 mg Admin: 11/17/16 16:48 Dose: 50 mg Hydromorphone HCl (Dilaudid) 0.5 mg IVPUSH Q2H PRN PRN Reason: Pain Last Admin: 11/17/16 20:06 Dose: 0.5 mg Lactated Ringer's (Ringers, Lactated) 1,000 mls @ 50 mls/hr IV ASDIRECTED [facility] Last Admin: 11/18/16 13:02 Dose: 50 mls/hr Infusion: 11/18/16 12:49 Dose: 50 mls/hr Admin: 11/17/16 16:49 Dose: 50 mls/hr Lamotrigine (Lamotrigine) 100 mg PO DAILY [facility] Last Admin: 11/18/16 10:07 Dose: 100 mg Non-Formulary Medication (Hydrocortisone) 5 mg PO BID [facility] Non-Formulary Medication (Hydrocortisone) 10 mg PO QAM [facility] Ondansetron HCl (Zofran Odt) 4 mg PO Q8H PRN PRN Reason: Nausea/Vomiting Dextroamphetamine/Amphetamine [ Adderall Xr 30 Mg Capsule] 0 each PO DAILY [facility] Last Admin: 11/18/16 09:44 Dose: Salicylic Acid/Ceramide Cmb #1 [ Salicylic Acid 6% Lotion] 0 each TOP ASDIRECTED [facility] Simethicone (Simethicone) 80 mg PO DAILY PRN PRN Reason: Gas - Plan Plan (Free Text/Narrative):: dischaarge summary dictated JMB
--- NOTE | 2016-11-18 23:13 | DISCH ---
ADMISSION DATE: 11/17/2016 DISCHARGE DATE: 11/18/2016 HISTORY OF PRESENT ILLNESS: This is a 56-year-old, who presented with symptomatic thyroid extending into the chest. Her symptoms were that of dysphagia. She was brought in for elective right thyroid lobectomy. She did have comorbidities as stated in her H and P of which her adrenal insufficiency was most pertinent. PHYSICAL EXAMINATION: GENERAL: At the time of admission revealed alert and cooperative female. EYES, EARS, NOSE, AND THROAT: Unremarkable. NECK: Supple. LUNGS: Clear. HEART: Tones regular rate. ABDOMEN: Soft. HOSPITAL COURSE: The patient was brought to the operating room from outpatient surgery. Left thyroid lobectomy was performed. Postoperatively, the patient did well but did have trouble swallowing and had some discomfort in her neck that was felt to be significant enough to admit for observation. It was concerned she lived alone and that she may not be able to swallow her hydrocortisone. A stress dose was given pre and postoperatively and was continued in the immediate postoperative period. The patient was treated with head elevation, humidity, and pain medication. Her calcium was obtained, was 8.2 and remained stable to 8.2. No calcium supplement will be given. Her thyroid supplementation will be started on return to the clinic. The patient at the following day was up and about, able to swallow and take liquids and her examination of the neck was healing without problem. She was given stress doses of hydrocortisone every 6 hours 50 mg. The patient improved and had reached maximum hospital benefit and was discharged. DISCHARGE DIAGNOSES: 1. Symptomatic substernal thyroid, status post left thyroid lobectomy. 2. Adrenal insufficiency, status post maintenance with stress doses of hydrocortisone. CONDITION: The patient's condition improved. DIET: Surgical soft diet. DISCHARGE MEDICATIONS: Pain medication per medication reconciliation form in addition to hydrocodone 5 mg with Tylenol 325 mg one p.o. q.i.d. p.r.n. pain. FOLLOW-UP: Will follow up in the clinic. No pushing, shoving, or pulling or lifting. FINAL DIAGNOSIS: ACTIVITY: CONDITION ON DISCHARGE: MMODAL /[id number]
== END 2016-11-18 16:30 | disposition home or self-care (01) ==
LOC: JD.SDS 07:46 → JD.MS 10:43
PROVIDERS: ADMIT Surgery; ATTEND Surgery
DX: E04.2 Nontoxic multinodular goiter (principal); G47.30 Sleep apnea, unspecified; K21.9 Gastro-esophageal reflux disease without esophagitis; E11.9 Type 2 diabetes mellitus without complications; Z88.1 Allergy status to other antibiotic agents; Z88.2 Allergy status to sulfonamides; Z91.09 Other allergy status, other than to drugs and biological substances; Z88.8 Allergy status to other drugs, medicaments and biological substances; Z90.49 Acquired absence of other specified parts of digestive tract; Z98.890 Other specified postprocedural states; Z90.710 Acquired absence of both cervix and uterus; Z79.899 Other long term (current) drug therapy
CPT/HCPCS: 36415; 60220; 82310; 93005; 94762; A9270; G0378; J0330; J1100; J1170; J1720; J2250; J2370; J2405; J3010; J7120; 00320; 88307; J0690; J2704

== ENCOUNTER 2023-08-12 07:35 | Day surgery (SDC) | payer MEDICARE, BC ==
[~2023-08-12 07:35] MED LIST changes: -Dexamethasone 4 MG/ML 5 ML MDV ONE; -Lactated Ringers 1,000 ML ONE; -Lidocaine 1% 4 ML ONE; -Lidocaine 1%/Sod Bicarbonate in NS 8.4% 1 ML Syringe IV PRN; -Midazolam 1 MG/ML 2 ML SDV ONE; -Ondansetron 4 MG/2 ML SDV ONE; -Propofol 200 MG/20 ML SDV ONE; -Rocuronium 50 MG/5 ML Vial ONE; +Sodium Chloride 0.9% 10 ML Syringe FLUSH SCH; -ceFAZolin 1 GM Vial ONE; -fentaNYL 250 MCG/5 ML SDV ONE
[2023-08-12] MEDS: Lactated Ringers 1,000 ML IV SCH (07:50)
[2023-08-12] MEDS ORDERED: Midazolam 1 MG/ML 2 ML SDV ONE (08:01)
[2023-08-12] MEDS ORDERED: Propofol 200 MG/20 ML SDV ONE (08:01)
[2023-08-12] MEDS ORDERED: fentaNYL 100 MCG/2 ML SDV ONE (08:01)
[2023-08-12] MEDS ORDERED: Ondansetron 4 MG/2 ML SDV ONE (08:02)
[2023-08-12] MEDS ORDERED: Dexamethasone 4 MG/ML 5 ML MDV ONE (08:02)
[2023-08-12] MEDS ORDERED: ceFAZolin 2 GM Vial ONE (08:02)
[2023-08-12] MEDS ORDERED: Rocuronium 50 MG/5 ML Vial ONE (08:02)
[2023-08-12] MEDS ORDERED: Ropivacaine 0.5% 5 MG/ML 30 ML SDV ONE (08:21)
[2023-08-12] MEDS ORDERED: Hydrocortisone Sodium Succinate 100 MG/2 ML SDV ONE (09:14)
[2023-08-12] MEDS: oxyCODONE ER 10 MG TAB.ER PO SCH (09:42)
[2023-08-12] MEDS: Pregabalin 25 MG Cap PO SCH (09:44)
[2023-08-12] MEDS: Scopalamine 1mg/3day Transdermal Patch TOP SCH (09:44)
[2023-08-12] MEDS: Acetaminophen 325 MG Tab PO SCH (09:45)
[2023-08-12] MEDS ORDERED: Lactated Ringers 1,000 ML IV ONE (10:30)
[2023-08-12] MEDS ORDERED: Phenylephrine 1% 10 MG/ML SDV ONE (10:45)
[2023-08-12] MEDS: Vancomycin 1 GM SDV ONE (11:35)
[2023-08-12] MEDS: Tranexamic Acid 1,000 MG/10 ML Vial ONE (11:35)
[2023-08-12] MEDS ORDERED: Sugammadex Sodium 200 MG/2 ML VIAL IV ONE (11:44)
[2023-08-12 14:33] VITALS: BP 139/77; PULSE 69
== END 2023-08-12 15:15 | disposition home or self-care (01) ==
LOC: JD.SDS 07:35
PROVIDERS: ATTEND Orthopaedic Surgery
DX: M19.012 Primary osteoarthritis, left shoulder (principal); E11.9 Type 2 diabetes mellitus without complications; K21.9 Gastro-esophageal reflux disease without esophagitis; F41.9 Anxiety disorder, unspecified; F33.1 Major depressive disorder, recurrent, moderate; E03.9 Hypothyroidism, unspecified; G47.33 Obstructive sleep apnea (adult) (pediatric); E66.9 Obesity, unspecified; Z68.34 Body mass index [BMI] 34.0-34.9, adult; Z79.890 Hormone replacement therapy; Z79.899 Other long term (current) drug therapy; Z88.2 Allergy status to sulfonamides; Z91.048 Other nonmedicinal substance allergy status; Z88.8 Allergy status to other drugs, medicaments and biological substances
CPT/HCPCS: 23472; 76000; 97161; 97530; A9270; C1713; C1769; C1776; J0690; J1100; J1720; J2250; J2371; J2405; J2704; J2795; J3010; J3370; J3490; J7120; 01638

== ENCOUNTER 2023-12-24 06:30 | Day surgery (SDC) | payer MEDICARE, BC ==
[~2023-12-24 06:30] MED LIST changes: +Lactated Ringers 1,000 ML IV SCH
[2023-12-24] MEDS ORDERED: Lactated Ringers 1,000 ML ONE (06:43)
[2023-12-24] MEDS ORDERED: Midazolam 1 MG/ML 2 ML SDV ONE (06:44)
[2023-12-24] MEDS ORDERED: Propofol 200 MG/20 ML SDV ONE (06:44)
[2023-12-24] MEDS ORDERED: ceFAZolin 2 GM Vial ONE (06:52)
[2023-12-24] MEDS ORDERED: Lidocaine 1% PF 2 ML SDV ONE ×2 (06:52)
[2023-12-24] MEDS ORDERED: Lidocaine 1% 4 ML ONE (06:52)
[2023-12-24] MEDS: Lactated Ringers 1,000 ML IV SCH (07:00)
[2023-12-24] MEDS ORDERED: Rocuronium 50 MG/5 ML Vial ONE (07:00)
[2023-12-24] MEDS ORDERED: fentaNYL 250 MCG/5 ML SDV ONE (07:17)
[2023-12-24] MEDS ORDERED: Ropivacaine 0.5% 5 MG/ML 30 ML SDV ONE (07:18)
[2023-12-24] MEDS ORDERED: EPINEPHrine 1 MG/ML SDV ONE (07:18)
[2023-12-24] MEDS ORDERED: Dexamethasone 4 MG/ML 5 ML MDV ONE (07:19)
[2023-12-24] MEDS: Scopalamine 1mg/3day Transdermal Patch TRDERM ONE (07:59)
[2023-12-24] MEDS ORDERED: Sodium Chloride 0.9% 10 ML Syringe FLUSH PRN (08:01)
[2023-12-24] MEDS ORDERED: dexmedeTOMIDine HCl 200 MCG/2 ML SDV ONE (08:08)
[2023-12-24] MEDS ORDERED: Sugammadex Sodium 200 MG/2 ML VIAL IV ONE (08:08)
[2023-12-24] MEDS ORDERED: Ondansetron 4 MG/2 ML SDV ONE (08:09)
[2023-12-24] MEDS ORDERED: Phenylephrine 1% 10 MG/ML SDV ONE (08:11)
[2023-12-24] MEDS ORDERED: Ondansetron 4 MG/2 ML SDV IVPUSH PRN (08:19)
[2023-12-24] MEDS ORDERED: HYDROmorphone 0.5 MG/0.5 ML Syringe IVPUSH PRN (08:19)
[2023-12-24] MEDS ORDERED: Hydrocortisone Sodium Succinate 100 MG/2 ML SDV IVPUSH ONE (08:30)
[2023-12-24] MEDS ORDERED: Sodium Chloride 0.9% 10 ML Syringe FLUSH SCH (09:00)
[2023-12-24] MEDS: Morphine 8 MG, EPINEPHrine 0.3 MG, Cefuroxime 750 MG, Ketorolac 30 MG, Sodium Chloride ... PRN (09:14)
[2023-12-24] MEDS: Vancomycin 1 GM SDV ONE (09:20)
[2023-12-24] MEDS: Tranexamic Acid 1,000 MG/10 ML Vial ONE (09:20)
[2023-12-24] MEDS: Bupivacaine 0.25% 10 ML SDV ONE (09:20)
[2023-12-24] MEDS: Triamcinolone Acetonide 40 MG/ML 1 ML SDV ONE (09:38)
[2023-12-24] MEDS: fentaNYL 100 MCG/2 ML SDV IVPUSH PRN (10:25)
[2023-12-24] MEDS ORDERED: ePHEDrine 50 MG/ML SDV ONE (11:49)
[2023-12-24 14:06] VITALS: BP 103/71; PULSE 81
[2023-12-24] MEDS: oxyCODONE 5 MG Tab PO PRN (14:07)
== END 2023-12-24 14:00 | disposition home or self-care (01) ==
LOC: JD.SDS 06:30
PROVIDERS: ATTEND Orthopaedic Surgery
DX: M17.0 Bilateral primary osteoarthritis of knee (principal); E66.9 Obesity, unspecified; E03.9 Hypothyroidism, unspecified; E11.9 Type 2 diabetes mellitus without complications; Z79.899 Other long term (current) drug therapy; Z79.890 Hormone replacement therapy; Z88.8 Allergy status to other drugs, medicaments and biological substances; Z91.09 Other allergy status, other than to drugs and biological substances; Z88.2 Allergy status to sulfonamides; F32.A Depression, unspecified
CPT/HCPCS: 01402; 64447; 73560-26-LT; 73560-LT; 97116-GP; 97161-GP; A9270-GY; C1713; C1776; J0171; J0665; J0690; J0697; J1100; J1885; J2250; J2272; J2371; J2405; J2704; J2795; J3010; J3301; J3490; J7120